=== PATIENT | female | born 1965 | race Caucasian/White ===

== ENCOUNTER 2016-08-17 02:03 | Emergency (ER) | payer OTHER ==
[~2016-08-17] VITALS: Ht 170.2 cm; Wt 120.7 kg
[~2016-08-17 02:03] MED LIST: BENADRYL ALLERG25 MG PO; CALCIUM500 M4 PO; COLACE100 MG PO; FOLIC ACID0.8 MG PO; FUROSEMIDE40 MG PO; HYDROCHLOROTHIA50 MG PO; MELATONIN5 MG PO; MICRO-K10 ME2 PO; PERCOCET 5/31 TABLET PO; POLY-VITAMIN1 EACH PO; PROTONIX40 MG PO; VITAMIN B-121000 MC1 PO; VITAMIN C1000 M1 PO
[2016-08-17 02:41] LABS: HEMATOCRIT 39.9 % (36.0-46.0); MCH 24.4 PG (29.0-34.0); MCHC 32.3 G/DL (30.0-36.0); MCV 75.6 FL (83-99); MEAN PLAT.VOLUME 10.2 uM^3 (9.5-12.4); PLATELET COUNT 471 K/uL (156-360); RBC DIS.WIDTH-SD 43.4 % (39-53); RED BLOOD COUNT 5.28 M/uL (3.80-5.20); WHITE BLOOD COUNT 20.7 K/uL (4.1-10.2)
[2016-08-17 02:52] LABS: CHLORIDE 95 mEq/L (99-109); POTASSIUM 3.4 mEq/L (3.7-5.4); SODIUM 137 mEq/L (136-147)
[2016-08-17 02:54] LABS: GLUCOSE 182 mg/dL (70-99)
[2016-08-17 02:55] LABS: ANION GAP 17 MEQ/L (2-14)
[2016-08-17 02:56] LABS: TOTAL BILIRUBIN 0.6 mg/dL (0.0-1.0)
[2016-08-17 02:57] LABS: ALKALINE PHOSPHATASE 89 IU/L (3-129)
[2016-08-17 02:58] LABS: GFR ESTIMATE (CALCULATED) > 59 mL/min/
[2016-08-17 02:59] LABS: UREA NITROGEN (BUN) 16 mg/dL (9-23)
[2016-08-17 04:27] LABS: ADD MIUA? NO; BILIRUBIN NEGATIVE; BLOOD NEGATIVE; COLOR YELLOW ((YELLOW)); GLUCOSE (STRIP) NEGATIVE; KETONES 20; LEUKOCYTES NEGATIVE; NITRITE NEGATIVE; PROTEIN (STRIP) NEGATIVE; UCUL ADDED? NO
[2016-08-17 06:59] VITALS: BP 154/90
== END 2016-08-17 07:07 | disposition designated cancer center or children's hospital, planned readmission (85) ==
LOC: EME 02:03
PROVIDERS: Emergency Medicine
DX: K43.6 Other and unspecified ventral hernia with obstruction, without gangrene (principal); I10 Essential (primary) hypertension; E66.01 Morbid (severe) obesity due to excess calories; Z98.84 Bariatric surgery status; Z88.0 Allergy status to penicillin
CPT/HCPCS: 71010; 74177; 80053; 81003; 83605; 85027; 87040; 99281; 99285; J0692; J2405; J2550; J3010; J7030; J7050

== ENCOUNTER 2016-10-06 10:51 | Emergency (ER) | payer OTHER ==
[~2016-10-06] VITALS: Ht 167.6 cm; Wt 111.8 kg
[2016-10-06 11:57] LABS: HEMATOCRIT 38.6 % (36.0-46.0); MCH 23.6 PG (29.0-34.0); MCHC 31.1 G/DL (30.0-36.0); MEAN PLAT.VOLUME 10.2 uM^3 (9.5-12.4); PLATELET COUNT 479 K/uL (156-360); RBC DIS.WIDTH-SD 43.7 % (39-53); RED BLOOD COUNT 5.08 M/uL (3.80-5.20); WHITE BLOOD COUNT 10.5 K/uL (4.1-10.2)
[2016-10-06 12:24] LABS: CHLORIDE 105 mEq/L (99-109); POTASSIUM 3.5 mEq/L (3.7-5.4); SODIUM 142 mEq/L (136-147)
[2016-10-06 12:27] LABS: GLUCOSE 122 mg/dL (70-99)
[2016-10-06 12:28] LABS: ANION GAP 10 MEQ/L (2-14)
[2016-10-06 12:29] LABS: TOTAL BILIRUBIN 0.5 mg/dL (0.0-1.0)
[2016-10-06 12:30] LABS: ALKALINE PHOSPHATASE 69 IU/L (3-129); GFR ESTIMATE (CALCULATED) > 59 mL/min/
[2016-10-06 12:31] LABS: UREA NITROGEN (BUN) 17 mg/dL (9-23)
[2016-10-06 12:39] LABS: QUANTITATIVE HCG < 4.0 MIU/ML
[2016-10-06 13:49] LABS: ADD MIUA? YES; BILIRUBIN NEGATIVE; BLOOD NEGATIVE; COLOR YELLOW ((YELLOW)); GLUCOSE (STRIP) NEGATIVE; KETONES 5; LEUKOCYTES NEGATIVE; NITRITE NEGATIVE; PROTEIN (STRIP) 30; UROBILINOGEN 0.2 MG/DL (0.2-1.0)
[2016-10-06 13:58] LABS: BACTERIA RARE /HPF; CALCIUM OXALATE CRYSTALS 1+ /HPF; EPITHELIAL CELLS 1+ /HPF; MUCUS 1+ /LPF; RED BLOOD CELLS 0-5 /HPF (0-5); UCUL ADDED? NO; URIC ACID CRYSTALS 1+ /HPF; WHITE BLOOD CELLS 0-5 /HPF (0-5)
[2016-10-06 14:26] VITALS: BP 165/99
[2016-10-06] MEDS ORDERED: ZOFRAN ODT4 MG PO (14:26)
[2016-10-06] MEDS ORDERED: REGLAN10 MG PO (14:26)
== END 2016-10-06 14:33 | disposition home or self-care (01) ==
LOC: EME 10:51
DX: B34.9 Viral infection, unspecified (principal); R11.2 Nausea with vomiting, unspecified; Z98.890 Other specified postprocedural states; I10 Essential (primary) hypertension
CPT/HCPCS: 80053; 81003; 84702; 85027; 99281; 99285; J2765; J7030

== ENCOUNTER 2016-11-29 08:47 | Emergency (ER) | payer OTHER ==
[~2016-11-29] VITALS: Ht 167.6 cm; Wt 110.9 kg
[~2016-11-29 08:47] MED LIST changes: +REGLAN10 MG PO; +ZOFRAN ODT4 MG PO
[2016-11-29 09:46] LABS: CHLORIDE 108 mEq/L (99-109); POTASSIUM 3.7 mEq/L (3.7-5.4); SODIUM 140 mEq/L (136-147)
[2016-11-29 09:48] LABS: GLUCOSE 123 mg/dL (70-99)
[2016-11-29 09:50] LABS: ANION GAP 10 MEQ/L (2-14); HEMATOCRIT 37.1 % (36.0-46.0); MCH 22.7 PG (29.0-34.0); MCV 73.2 FL (83-99); MEAN PLAT.VOLUME 10.3 uM^3 (9.5-12.4); PLATELET COUNT 484 K/uL (156-360); RBC DIS.WIDTH-CV 16.5 % (11.8-14.6); RBC DIS.WIDTH-SD 43.5 % (39-53); RED BLOOD COUNT 5.07 M/uL (3.80-5.20); TOTAL BILIRUBIN 0.3 mg/dL (0.0-1.0); WHITE BLOOD COUNT 17.5 K/uL (4.1-10.2)
[2016-11-29 09:52] LABS: ALKALINE PHOSPHATASE 82 IU/L (3-129); GFR ESTIMATE (CALCULATED) > 59 mL/min/
[2016-11-29 09:53] LABS: UREA NITROGEN (BUN) 12 mg/dL (9-23)
[2016-11-29 09:56] LABS: LIPASE 17 U/L (1.0-51.0)
[2016-11-29 11:08] LABS: ADD MIUA? NO; BILIRUBIN NEGATIVE; BLOOD NEGATIVE; COLOR YELLOW ((YELLOW)); GLUCOSE (STRIP) NEGATIVE; KETONES 5; LEUKOCYTES NEGATIVE; NITRITE NEGATIVE; PROTEIN (STRIP) NEGATIVE; UCUL ADDED? NO; UROBILINOGEN 0.2 MG/DL (0.2-1.0)
[2016-11-29 11:23] LABS: SPECIFIC GRAVITY 1.071 (1.000-1.030)
[2016-11-29] MEDS ORDERED: POTASSIUM CHLO20 ME2 PO ×2 (12:55→12:56)
[2016-11-29] MEDS ORDERED: OMEPRAZOLE20 MG PO (12:56)
[2016-11-29] MEDS ORDERED: ACID CONTROL150 MG PO (12:57)
[2016-11-29] MEDS ORDERED: FUROSEMIDE40 MG PO (12:57)
[2016-11-29] MEDS ORDERED: TRAMADOL HCL50 MG PO (12:58)
[2016-11-29] MEDS ORDERED: MORPHINE SULFAT15 M1 PO (12:59)
[2016-11-29] MEDS ORDERED: MELATONIN10 M1 PO (13:00)
[2016-11-29] MEDS ORDERED: COL-RITE100 M1 PO (13:00)
[2016-11-29] MEDS ORDERED: GABAPENTIN300 MG PO (13:01)
[2016-11-29] MEDS ORDERED: ZOFRAN ODT4 MG PO (13:59)
[2016-11-29 16:46] VITALS: BP 138/73
== END 2016-11-29 16:48 | disposition short-term general hospital (02) ==
LOC: EME 08:47
PROVIDERS: Nurse Practitioner Family
DX: R11.2 Nausea with vomiting, unspecified (principal); K52.9 Noninfective gastroenteritis and colitis, unspecified; E66.01 Morbid (severe) obesity due to excess calories; I10 Essential (primary) hypertension; Z98.890 Other specified postprocedural states; K43.9 Ventral hernia without obstruction or gangrene; K63.89 Other specified diseases of intestine; R51 Headache; R30.0 Dysuria; Z90.49 Acquired absence of other specified parts of digestive tract; Z98.84 Bariatric surgery status; Z68.39 Body mass index [BMI] 39.0-39.9, adult
CPT/HCPCS: 74177; 80053; 81003; 83605; 83690; 85027; 87040; 99281; 99285; J0744; J1885; J2060; J2405; J2765; J3010; J7030; J7040; S0030